=== PATIENT | male | born 1980 | race Caucasian/White ===

== ENCOUNTER 2016-11-03 11:28 | Emergency (ER) | payer OTHER | END 2016-11-03 13:04 | disposition home or self-care (01) | LOC: ER 11:28 | DX: J20.8 Acute bronchitis due to other specified organisms (principal); H66.93 Otitis media, unspecified, bilateral; F17.210 Nicotine dependence, cigarettes, uncomplicated; Z88.0 Allergy status to penicillin; Z87.442 Personal history of urinary calculi | CPT/HCPCS: 87502 ==